=== PATIENT | female | born 1990 | race Caucasian/White ===

== ENCOUNTER 2021-10-18 18:18 | Emergency (ER) | payer OTHER ==
[~2021-10-18] VITALS: Ht 170.2 cm; Wt 59.1 kg
[2021-10-18] MEDS ORDERED: IBUP200T46 PO (18:41)
[2021-10-18] MEDS ORDERED: ACETAMINOPHEN 500 MG TAB PO ONE (22:05)
[2021-10-18] MEDS ORDERED: NS 1,000 ML IV ONE (22:15)
[2021-10-18 23:29] VITALS: BP 98/54
== END 2021-10-19 00:40 | disposition home or self-care (01) ==
LOC: M ED 18:18
DX: Z20.822 Contact with and (suspected) exposure to COVID-19 (principal)

== ENCOUNTER → 2023-03-01 | Outpatient (CLI) | payer BC ==
[~2023-03-01] MED LIST: IBUP200T46 PO
[2023-03-01 09:44] LABS: APPEARANCE, URINE CLEAR (CLEAR); BACTERIA, URINE AUTO NEGATIVE (NEGATIVE); BILIRUBIN, URINE AUTO NEGATIVE (NEGATIVE); BLOOD, URINE BLOOD NEGATIVE (NEGATIVE); COLOR, URINE STRAW (YELLOW); GLUCOSE, URINE (UA) AUTO NEGATIVE (NEGATIVE); KETONE, URINE AUTO NEGATIVE (NEGATIVE); LEUKOCYTE ESTERASE, URINE AUTO 3+ (NEGATIVE); NITRITE, URINE AUTO NEGATIVE (NEGATIVE); PROTEIN, URINE AUTO NEGATIVE (NEGATIVE); RBC, URINE AUTO 0 /HPF (0-3); SPECIFIC GRAVITY URINE AUTO 1.003 (1.002-1.035); SQUAMOUS EPITHELIAL CELL UR AU 2 /HPF (0-6); UROBILINOGEN, URINE AUTO 0.2 mg/dL (0.0-2.0); WBC, URINE AUTO 17 /HPF (0-3)
[2023-03-01 10:20] LABS: LIPASE 38 U/L (12-53)
[2023-03-01 10:22] LABS: ALBUMIN 4.6 G/DL (3.2-5.2); ALKALINE PHOSPHATASE 86 U/L (46-116); ALT/SGPT 17 U/L (7.0-40); AST/SGOT 15 U/L (<34); BILIRUBIN,TOTAL 0.7 MG/DL (0.3-1.2); BLOOD UREA NITROGEN 8 MG/DL (9-23); CALCIUM LEVEL 9.6 MG/DL (8.5-10.1); CARBON DIOXIDE LEVEL 28 MMOL/L (20-31); CHLORIDE LEVEL 103 MMOL/L (98-107); CREATININE FOR GFR 0.77 MG/DL (0.55-1.30); GLOMERULAR FILTRATION RATE > 60.0 (>60); GLUCOSE, FASTING 80 MG/DL (60-100); POTASSIUM SERUM 4.4 MMOL/L (3.5-5.1); SODIUM LEVEL 139 MMOL/L (136-145); TOTAL PROTEIN 7.5 G/DL (5.7-8.2)
[2023-03-01 10:36] LABS: VITAMIN B12 LEVEL 478 PG/ML (211-911)
[2023-03-01 10:38] LABS: FOLATE > 24.0 NG/ML (>5.4); THYROID STIMULATING HORMONE 1.186 uIU/ML (0.55-4.78)
[2023-03-01 10:41] LABS: FREE T4 1.24 NG/DL (0.89-1.76)
[2023-03-01 10:48] LABS: HCG, SERUM QUALITATIVE NEGATIVE (NEGATIVE)
[2023-03-02 08:11] LABS: HOMOCYST(E)INE SERUM 8.7 umol/L (0.0-14.5)
[2023-03-06 23:07] LABS: Methylmalonic Acid 163 nmol/L (0-378)
== END ==
LOC: M LAB 08:57
PROVIDERS: ATTEND Physician Assistant
DX: F41.1 Generalized anxiety disorder (principal); F41.0 Panic disorder [episodic paroxysmal anxiety]; R10.84 Generalized abdominal pain; F41.8 Other specified anxiety disorders; G43.019 Migraine without aura, intractable, without status migrainosus